=== PATIENT | male | born 1985 | race Two or more races ===

== ENCOUNTER 2017-03-06 11:58 | Emergency (ER) | payer OTHER ==
[2017-03-06] MEDS ORDERED: Morphine 2 MG/ML Syringe IM ONE (12:18)
[2017-03-06] MEDS ORDERED: Ketorolac 60 MG/2 ML SDV IM ONE (12:18)
--- NOTE | 2017-03-06 12:51 | CR ---
EXAMINATION: Right hand HISTORY: Injury COMPARISON: None TECHNIQUE: 2 views FINDINGS/IMPRESSION: There is a nondisplaced oblique fracture through the tuft of the distal fourth p halanx. Remaining osseous structures and joint spaces appear intact. Bone mineralization is otherwise normal.
--- NOTE | 2017-03-06 13:32 | EDM.PDOC ---
ED HPI GENERAL MEDICAL PROBLEM - General Chief Complaint: Upper Extremity Injury/Pain Stated Complaint: RIGHT RING FINGER WORK RELATED INJURY Time Seen by Provider: 03/06/17 13:00 Source of Information: Reports: Patient History Limitations: Reports: No Limitations - History of Present Illness INITIAL COMMENTS - FREE TEXT/NARRATIVE: History of present illness: [31-year-old male comes in status post crushing injury to right hand entrapping fourth finger between equipment at work. Patient here complaining of pain to fourth finger.] Review of systems: As per history of present illness and below otherwise all systems reviewed and negative. Past medical history: As per history of present illness and as reviewed below otherwise noncontributory. Surgical history: As per history of present illness and as reviewed below otherwise noncontributory. Social history: No reported history of drug or alcohol abuse. Family history: As per history of present illness and as reviewed below otherwise noncontributory. Physical exam: HEENT: Atraumatic, normocephalic, pupils reactive, negative for conjunctival pallor or scleral icterus, mucous membranes moist, throat clear, neck supple, nontender, trachea midline. Lungs: Clear to auscultation, breath sounds equal bilaterally, chest nontender. Heart: S1S2, regular, negative for clicks, rubs, or JVD. Abdomen: Soft, nondistended, nontender. Negative for masses or hepatosplenomegaly. Negative for costovertebral tenderness. Pelvis: Stable nontender. Genitourinary: Deferred. Rectal: Deferred. Extremities: Fourth finger right hand with fingertip noted to have slight deformity, negative for cords or calf pain. Neurovascular unremarkable. Neuro: Awake, alert, oriented. Cranial nerves II through XII unremarkable. Cerebellum unremarkable. Motor and sensory unremarkable throughout. Exam nonfocal. Diagnostics: [X-ray right hand] Therapeutics: [] Impression: [Tuft fracture of tip with phalanx] Plan: [Splint follow-up with orthopedics] Definitive disposition and diagnosis as appropriate pending reevaluation and review of above. Right 4-Ring finger Pain Score (Numeric/FACES): 9 - Related Data Allergies Allergy/AdvReac Type Severity Reaction Status Date / Time No Known Allergies Allergy Verified 03/06/17 12:10 Home Meds: Home Meds Albuterol Sulfate [Ventolin Hfa] 03/06/17 [History] Past Medical History HEENT History: Reports: None Cardiovascular History: Reports: None Respiratory History: Reports: Asthma Gastrointestinal History: Reports: None Genitourinary History: Reports: None Musculoskeletal History: Reports: None Neurological History: Reports: None Psychiatric History: Reports: None Hematologic History: Reports: None Immunologic History: Reports: None Dermatologic History: Reports: None Social & Family History - Tobacco Use Smoking Status *Q: Former Smoker Used Tobacco, but Quit: Yes Month Tobacco Last Used: 03/03 - Caffeine Use Caffeine Use: Reports: None - Recreational Drug Use Recreational Drug Use: No Review of Systems - Review of Systems Review Of Systems: See Below (See history of present illness) ED EXAM, GENERAL - Physical Exam Exam: See Below (History of present illness) Course - Vital Signs Last Recorded V/S: Last Vital Signs Temp 36.7 C 03/06/17 12:06 Pulse 61 03/06/17 13:09 Resp 18 03/06/17 13:09 BP 110/72 03/06/17 13:09 Pulse Ox 97 03/06/17 12:06 - Orders/Labs/Meds Meds: Medications Discontinued Medications Generic Name Dose Route Start Last Admin Trade Name Cristobalq PRN Reason Stop Dose Admin Ketorolac Tromethamine 60 mg 03/06/17 12:18 03/06/17 12:27 Toradol IM 03/06/17 12:19 60 mg ONETIME ONE Administration Morphine Sulfate 2 mg 03/06/17 12:18 03/06/17 12:34 Morphine IM 03/06/17 12:19 2 mg ONETIME ONE Administration Departure - Departure Time of Disposition: 13:38 Disposition: Home, Self-Care 01 Condition: Good Clinical Impression: Closed fracture of tuft of distal phalanx of finger - Discharge Information Instructions: Finger Fracture, [id number] Referrals: PCP,None [Primary Care Provider] - Additional Instructions: The following information is given to patients seen in the emergency department who are being discharged to home. This information is to outline your options for follow-up care. We provide all patients seen in our emergency department with a follow-up referral. The need for follow-up, as well as the timing and circumstances, are variable depending upon the specifics of your emergency department visit. If you don't have a primary care physician on staff, we will provide you with a referral. We always advise you to contact your personal physician following an emergency department visit to inform them of the circumstance of the visit and for follow-up with them and/or the need for any referrals to a consulting specialist. The emergency department will also refer you to a specialist when appropriate. This referral assures that you have the opportunity for follow-up care with a specialist. All of these measure are taken in an effort to provide you with optimal care, which includes your follow-up. Under all circumstances we always encourage you to contact your private physician who remains a resource for coordinating your care. When calling for follow-up care, please make the office aware that this follow-up is from your recent emergency room visit. If for any reason you are refused follow-up, please contact the [facility] Emergency Department at and asked to speak to the emergency department charge nurse. Keep splint clean and dry Take medication as directed Follow-up with PCP in 1-2 days Follow-up with orthopedics [facility] Professional [facility] [address] [place] [address], [address] [place] [address]
== END 2017-03-06 14:20 | disposition home or self-care (01) ==
LOC: MW.ED 11:58
DX: S62.634A Displaced fracture of distal phalanx of right ring finger, initial encounter for closed fracture (principal); Z87.891 Personal history of nicotine dependence; W23.1XXA Caught, crushed, jammed, or pinched between stationary objects, initial encounter; Y99.0 Civilian activity done for income or pay
CPT/HCPCS: 29130; 73120; 96372; 99283; J1885; J2270

== ENCOUNTER 2019-05-24 22:21 | Emergency (ER) | payer SELFPAY ==
[2019-05-24] MEDS ORDERED: Diphtheria,Pertussis(Acell),Tetanus Vaccine 0.5 ML Syringe IM ONE (22:58)
[2019-05-24] MEDS ORDERED: Amoxicillin/Clavulanate K 875-125 MG Tab PO ONE (23:05)
--- NOTE | 2019-05-24 23:11 | EDM.PDOC ---
ED HPI GENERAL MEDICAL PROBLEM - General Chief Complaint: Bite:Animal, Insect Stated Complaint: BITE BY DOG ON THE LEFT HAND Time Seen by Provider: 05/24/19 23:05 History Limitations: Reports: No Limitations - History of Present Illness INITIAL COMMENTS - FREE TEXT/NARRATIVE: Patient was attempted to break up a dog fight and got bit in the left hand. Onset: Today Duration: Constant Location: Reports: Upper Extremity, Left Quality: Reports: Ache Severity: Mild Improves with: Reports: None Worsens with: Reports: None Associated Symptoms: Reports: No Other Symptoms left hand Pain Score (Numeric/FACES): 8 - Related Data Allergies Allergy/AdvReac Type Severity Reaction Status Date / Time No Known Allergies Allergy Verified 05/24/19 22:29 Home Meds: Home Meds Albuterol Sulfate [Ventolin Hfa] 1 puff INH ASDIRECTED PRN 03/06/17 [History] Past Medical History HEENT History: Reports: None Cardiovascular History: Reports: None Respiratory History: Reports: Asthma Gastrointestinal History: Reports: None Genitourinary History: Reports: None Musculoskeletal History: Reports: None Neurological History: Reports: None Psychiatric History: Reports: None Hematologic History: Reports: None Immunologic History: Reports: None Dermatologic History: Reports: None Social & Family History - Family History Family Medical History: Noncontributory - Tobacco Use Smoking Status *Q: Current Every Day Smoker Years of Tobacco use: 10 Packs/Tins Daily: 1 - Caffeine Use Caffeine Use: Reports: None - Recreational Drug Use Recreational Drug Use: No ED ROS GENERAL - Review of Systems Review Of Systems: Comprehensive ROS is negative, except as noted in HPI. Constitutional: Reports: No Symptoms HEENT: Reports: No Symptoms Respiratory: Reports: No Symptoms Cardiovascular: Reports: No Symptoms Endocrine: Reports: No Symptoms GI/Abdominal: Reports: No Symptoms : Reports: No Symptoms Musculoskeletal: Reports: No Symptoms Skin: Reports: No Symptoms, Wound (There is a dog bite to the left hand and some puncture wounds.) Neurological: Reports: No Symptoms Psychiatric: Reports: No Symptoms Hematologic/Lymphatic: Reports: No Symptoms Immunologic: Reports: No Symptoms ED EXAM, ANIMAL BITE - Physical Exam Exam: See Below Exam Limited By: No Limitations General Appearance: Alert, WD/WN, No Apparent Distress Ears: Normal External Exam, Normal Canal Nose: Normal Inspection, Normal Mucosa Throat/Mouth: Normal Inspection, Normal Lips, Normal Teeth, Normal Oropharynx, Normal Voice Head: Atraumatic, Normocephalic Neck: Normal Inspection Respiratory/Chest: No Respiratory Distress, Lungs Clear Cardiovascular: Normal Peripheral Pulses, Regular Rate, Rhythm GI/Abdominal: Normal Bowel Sounds, Soft, Non-Tender, No Distention, No Abnormal Bruit (Male) Exam: Deferred Rectal (Males) Exam: Deferred Extremities: Other (Bruise to left hand status post dog bite neurovascular intact) Neurological: Alert, Oriented, CN II-XII Intact Psychiatric: Normal Affect, Normal Mood Skin Exam: Normal Color, Warm/Dry Course - Vital Signs Last Recorded V/S: Last Vital Signs Temp 97.6 F 05/24/19 22:30 Pulse 83 05/24/19 22:30 Resp 18 05/24/19 22:30 BP 139/86 05/24/19 22:30 Pulse Ox 95 05/24/19 22:30 - Orders/Labs/Meds Orders: Active Orders 24 hr Category Date Time Status Vaccines to be Administered [RC] PER UNIT ROUTINE Care 05/24/19 22:59 Active Amoxicillin/Clavulanate K [Augmentin 875 MG/125 MG] Med 05/24/19 23:05 Once 1 tab PO ONETIME ONE Meds: Medications Discontinued Medications Generic Name Dose Route Start Last Admin Trade Name Dakotah PRN Reason Stop Dose Admin Diphtheria/Tetanus/Acell Pertussis 0.5 ml 05/24/19 22:58 Adacel IM 05/24/19 22:59 .ONCE ONE Departure - Departure Time of Disposition: 23:09 Disposition: Home, Self-Care 01 Condition: Good Clinical Impression: Bite wound of left hand - Discharge Information Instructions: Animal Bite, Adult, [id number] Referrals: PCP,None [Primary Care Provider] - Additional Instructions: Follow-up in 48 hours for recheck Sepsis Event Note - Evaluation Sepsis Screening Result: No Definite Risk - Focused Exam Vital Signs: Vital Signs Temp Pulse Resp BP Pulse Ox 05/24/19 22:30 97.6 F 83 18 139/86 95 Date Exam was Performed: 05/24/19 Time Exam was Performed: 23:05 - My Orders Last 24 Hours: My Active Orders 05/24/19 22:59 Vaccines to be Administered [RC] PER UNIT ROUTINE 05/24/19 23:05 Amoxicillin/Clavulanate K [Augmentin 875 MG/125 MG] 1 tab PO ONETIME ONE - Assessment/Plan Last 24 Hours: My Active Orders 05/24/19 22:59 Vaccines to be Administered [RC] PER UNIT ROUTINE 05/24/19 23:05 Amoxicillin/Clavulanate K [Augmentin 875 MG/125 MG] 1 tab PO ONETIME ONE
== END 2019-05-24 23:30 | disposition home or self-care (01) ==
LOC: MW.ED 22:21
DX: S61.452A Open bite of left hand, initial encounter (principal); Z23 Encounter for immunization; F17.210 Nicotine dependence, cigarettes, uncomplicated; W54.0XXA Bitten by dog, initial encounter
CPT/HCPCS: 90471; 90715; 99283; A9270

== ENCOUNTER 2019-11-09 10:00 | Emergency (ER) | payer OTHER ==
[2019-11-09] MEDS ORDERED: Lidocaine 1% PF 2 ML SDV INJECT ONE (10:10)
[2019-11-09] MEDS ORDERED: Bacitracin Oint 1 GM U/D Packet TOP ONE (10:10)
--- NOTE | 2019-11-09 10:17 | EDM.PDOC ---
ED HPI GENERAL MEDICAL PROBLEM - General Chief Complaint: Laceration Stated Complaint: CUT FINGER Time Seen by Provider: 11/09/19 10:03 Source of Information: Reports: Patient History Limitations: Reports: No Limitations - History of Present Illness INITIAL COMMENTS - FREE TEXT/NARRATIVE: HISTORY AND PHYSICAL: History of present illness: Patient is a 33-year-old male who presents to the emergency room with a complaint of laceration across his left distal third digit. He states he was reaching into a piece of equipment when a grinder operator belt turned on resulting in the laceration. He denies any other extremity/bodily injury. He offers no systemic complaints. His tetanus is up-to-date. Review of systems: As per history of present illness and below otherwise all systems reviewed and negative. Past medical history: As per history of present illness and as reviewed below otherwise noncontributory. Surgical history: As per history of present illness and as reviewed below otherwise noncontributory. Social history: See social history for further information Family history: As per history of present illness and as reviewed below otherwise noncontributory. Physical exam: General: Well developed and well-nourished 33-year-old male. Alert and oriented. Nontoxic-appearing and in no acute distress. HEENT: Atraumatic, normocephalic, pupils equal and reactive bilaterally, negative for conjunctival pallor or scleral icterus, mucous membranes moist, TMs normal bilaterally, throat clear, neck supple, nontender, trachea midline. No drooling or trismus noted. No meningeal signs. No hot potato voice noted. Lungs: Clear to auscultation, breath sounds equal bilaterally, chest nontender. Heart: S1S2, regular rate and rhythm without overt murmur Abdomen: Soft, nondistended, nontender. Skin: 1.5cm laceration to the left distal third digit, does not involve the nailbed. Otherwise skin is intact, warm, dry. No lesions or rashes noted. Extremities: See skin for details, moves all extremities per self without difficulty or deficits, cap refill less than 3 seconds. Neurovascular unremarkable. Neuro: Awake, alert, oriented. Cranial nerves II through XII unremarkable. Cerebellum unremarkable. Motor and sensory unremarkable throughout. Exam nonfocal. Notes: Area was thoroughly cleansed with chlorhexidine and wound wash. 1% lidocaine was used to anesthetize the area. 4-0 nylon, #5 interrupted sutures were placed. Bacitracin nonstick dressing applied. X-ray shows fracture within the mid to distal aspect of the distal phalanx of the left finger. We discussed the need for follow-up with a hand surgeon, encouraged him to call and set up this appointment today. Signs and symptoms that would prompt him to return to the emergency room were reviewed and discussed. Supportive care measures were reviewed and discussed. Voices understanding and is agreeable to plan of care. Denies any further questions or concerns at this time. Diagnostics: X-ray Therapeutics: Lidocaine, bacitracin, cage splint Prescription: Centenary, Keflex Impression: Laceration Open Tuft fracture Plan: 1. Keep the area clean and dry. Continue to monitor for signs of infection. Sutures to be removed in 7-10 days. 2. Tylenol and/or ibuprofen as needed for pain management. 3. Please follow-up with your primary care provider in the next 1-2 days. Return to the ED as needed and as discussed. Definitive disposition and diagnosis as appropriate pending reevaluation and review of above. Left middle finger Pain Score (Numeric/FACES): 8 - Related Data Allergies Allergy/AdvReac Type Severity Reaction Status Date / Time No Known Allergies Allergy Verified 11/09/19 10:13 Home Meds: Home Meds Acetaminophen/HYDROcodone [Centenary 325-7.5 MG] 1 tab PO Q6H PRN #15 tablet 11/09/19 [Rx] cephALEXin [Keflex] 500 mg PO TID 7 Days #21 cap 11/09/19 [Rx] Past Medical History HEENT History: Reports: None Cardiovascular History: Reports: None Respiratory History: Reports: Asthma Gastrointestinal History: Reports: None Genitourinary History: Reports: None Musculoskeletal History: Reports: None Neurological History: Reports: None Psychiatric History: Reports: None Hematologic History: Reports: None Immunologic History: Reports: None Dermatologic History: Reports: None Social & Family History - Family History Family Medical History: Noncontributory - Caffeine Use Caffeine Use: Reports: None ED ROS GENERAL - Review of Systems Review Of Systems: Comprehensive ROS is negative, except as noted in HPI. ED EXAM, SKIN/RASH Exam: See Below (See dictation) ED SKIN PROCEDURES - Laceration/Wound Repair Left 3rd digit\ Appearance: Subcutaneous, Linear, Clean Distal NVT: Neuro & Vascular Intact, No Tendon Injury Anesthetic Type: Local Local Anesthesia - Lidocaine (Xylocaine): 1% Plain Local Anesthetic Volume: 3cc Skin Prep: Chlorhexidine (Hibiciens), Saline, Sterile Drape Saline Irrigation (cc's): 50 Exploration/Debridement/Repair: Wound Explored, In a Bloodless Field, Explored to Base, No Foreign Material Found Closed with: Sutures Lac/Wound length In cm: 1.5 Suture Size: 4-0 # of Sutures: 5 Suture Type: Nylon, Interrupted, Simple Drain Placement: No Sterile Dressing Applied: Provider Tetanus Status Addressed: Yes Complications: No Course - Vital Signs Last Recorded V/S: Last Vital Signs Temp 97.1 F 11/09/19 10:13 Pulse 64 11/09/19 10:13 Resp 15 11/09/19 10:13 BP 137/77 11/09/19 10:13 Pulse Ox 97 11/09/19 10:13 - Orders/Labs/Meds Meds: Medications Discontinued Medications Generic Name Dose Route Start Last Admin Trade Name Dakotah PRN Reason Stop Dose Admin Bacitracin 1 dose 11/09/19 10:10 11/09/19 10:24 Bacitracin Oint 1 Gm TOP 11/09/19 10:11 1 dose ONETIME ONE Administration Lidocaine HCl 2 ml 11/09/19 10:10 11/09/19 10:24 Xylocaine-Mpf 1% INJECT 11/09/19 10:11 2 ml ONETIME ONE Administration Departure - Departure Time of Disposition: 11:01 Disposition: Home, Self-Care 01 Clinical Impression: Laceration, Open fracture of tuft of distal phalanx of finger - Discharge Information Prescriptions: cephALEXin [Keflex] 500 mg PO TID 7 Days #21 cap Acetaminophen/HYDROcodone [Centenary 325-7.5 MG] 1 tab PO Q6H PRN #15 tablet PRN Reason: Pain Instructions: Laceration Care, Adult, [id number], Finger Fracture, Adult, [id number] Referrals: PCP,None [Primary Care Provider] - Forms: ED Department Discharge Additional Instructions: The following information is given to patients seen in the emergency department who are being discharged to home. This information is to outline your options for follow-up care. We provide all patients seen in our emergency department with a follow-up referral. The need for follow-up, as well as the timing and circumstances, are variable depending upon the specifics of your emergency department visit. If you don't have a primary care physician on staff, we will provide you with a referral. We always advise you to contact your personal physician following an emergency department visit to inform them of the circumstance of the visit and for follow-up with them and/or the need for any referrals to a consulting specialist. The emergency department will also refer you to a specialist when appropriate. This referral assures that you have the opportunity for follow-up care with a specialist. All of these measure are taken in an effort to provide you with optimal care, which includes your follow-up. Under all circumstances we always encourage you to contact your private physician who remains a resource for coordinating your care. When calling for follow-up care, please make the office aware that this follow-up is from your recent emergency room visit. If for any reason you are refused follow-up, please contact the [facility] Emergency Department at and asked to speak to the emergency department charge nurse. [facility] [address] [place] [id number] [address] [address] 1. Keep the area clean and dry. Continue to monitor for signs of infection. Sutures to be removed in 7-10 days. 2. Tylenol and/or ibuprofen as needed for pain management. 3. Please follow-up with your primary care provider in the next 1-2 days. Return to the ED as needed and as discussed. Sepsis Event Note (ED) - Focused Exam Vital Signs: Vital Signs Temp Pulse Resp BP Pulse Ox 11/09/19 10:13 97.1 F 64 15 137/77 97
--- NOTE | 2019-11-09 10:56 | CR ---
Left third finger: 3 views centered to the left third finger were obtained. Comparison: No previous study. Fracture is identified within the mid to distal aspect of the distal phalanx of the left third finger. No additional fracture or other bony abnormality is appreciated. Impression: 1. Fracture as noted above. Diagnostic code #3 This report was dictated in MDT
== END 2019-11-09 11:07 | disposition home or self-care (01) ==
LOC: MW.ED 10:00
DX: S62.633B Displaced fracture of distal phalanx of left middle finger, initial encounter for open fracture (principal); J45.909 Unspecified asthma, uncomplicated; W31.89XA Contact with other specified machinery, initial encounter
CPT/HCPCS: 12001; 73140; 99283; J2001